=== PATIENT | female | born 1980 | race Caucasian/White ===

== ENCOUNTER 2017-10-26 17:28 | Emergency (ER) | payer OTHER ==
[2017-10-26] MEDS ORDERED: LIDOCAINE 4%/TETRACAINE 0.5%/EPI 0.18% 5 ML TOPICAL SOLN TOP ONE (18:30)
--- NOTE | 2017-10-26 18:30 | ER Document Report ---
ED General - General Mode of Arrival: Ambulatory Information source: Patient TRAVEL OUTSIDE OF THE [place] IN LAST 30 DAYS: No <DAVE KENDALL - Last Filed: 10/26/17 22:47> <KISHOR JOHN - Last Filed: 10/26/17 22:59> - General Chief Complaint: Laceration Stated Complaint: FINGER LACERATION Notes: 37 y.o female presents to the ED with laceration to her LT middle finger. Pt reports that she cut it while trying to cut a watermelon and was concerned because she could see white after cutting her finger and thought it might have been her tendon. Pt is right handed. Pt reports that her tetanus vaccination is not up to date. Pt is from [place] and here visiting her in the . (DAVE KENDALL) - Related Data Allergies/Adverse Reactions: No Known Allergies Allergy (Verified 10/26/17 17:29) Past Medical History - General Information source: Patient - Social History Smoking Status: Former Smoker Chew tobacco use (# tins/day): - pt reports vaping Frequency of alcohol use: Rare Drug Abuse: None Family History: Reviewed & Not Pertinent Patient has suicidal ideation: No Patient has homicidal ideation: No Renal/ Medical History: Denies: Hx Peritoneal Dialysis <DAVE KENDALL - Last Filed: 10/26/17 22:47> Review of Systems - Review of Systems Constitutional: No symptoms reported EENT: No symptoms reported Cardiovascular: No symptoms reported Respiratory: No symptoms reported Gastrointestinal: No symptoms reported Genitourinary: No symptoms reported Female Genitourinary: No symptoms reported Musculoskeletal: No symptoms reported Skin: Other - Laceration Hematologic/Lymphatic: No symptoms reported Neurological/Psychological: No symptoms reported -: Yes All other systems reviewed and negative <DAVE KENDALL - Last Filed: 10/26/17 22:47> Physical Exam <DAVE KENDALL - Last Filed: 10/26/17 22:47> <KISHOR JOHN - Last Filed: 10/26/17 22:59> - Vital signs Vitals: Temp Pulse Resp BP Pulse Ox 98.6 F 87 15 135/80 H 96 10/26/17 17:43 10/26/17 17:43 10/26/17 17:43 10/26/17 17:43 10/26/17 17:43 - Notes Notes: Physical Exam: General: Alert, appears well. HEENT: Normocephalic. Atraumatic. PERRL. Extraocular movements intact. Oropharynx clear. Neck: Supple. Non-tender. Respiratory: No respiratory distress. Clear and equal breath sounds bilaterally. Cardiovascular: Regular rate and rhythm. Abdominal: Normal Inspection. Non-tender. No distension. Normal Bowel Sounds. Back: Non-tender. No deformity or step off. Extremities: Moves all four extremities. Upper extremities: Normal ROM. 0.3cm linear laceration proximally on the left middle finger. Normal strength. Lower extremities: Normal inspection. No edema. Normal ROM. Neurological: Normal cognition. AAOx3. Normal speech. Psychological: Normal affect. Normal Mood. Skin: Warm. Dry. 0.3cm linear laceration proximally on the left middle finger. ( DAVE KENDALL) Course <DAVE KENDALL - Last Filed: 10/26/17 22:47> - Diagnostic Test Radiology reviewed: Image reviewed <KISHOR JOHN - Last Filed: 10/26/17 22:59> - Re-evaluation Re-evalutation: 10/26/17 19:15 Laceration shows no signs of tendon injury patient has full flexion of finger that had laceration without weakness and laceration is not midline. It is more lateral aspect of the finger. Dermabond applied no complications. Infection return precautions provided (KISHOR JOHN) - Vital Signs Vital signs: Temp Pulse Resp BP Pulse Ox 98.9 F 80 15 133/82 H 97 10/26/17 19:18 10/26/17 19:18 10/26/17 17:43 10/26/17 19:18 10/26/17 19:18 Procedures - Laceration/Wound Repair Left Proximal Finger 3rd digit Time completed: 19:13 Wound length (cm): 0.3 Wound's Depth, Shape: Superficial, Linear Wound explored: Clean, No foreign body removed Wound Repaired With: Dermabond <DAVE KENDALL - Last Filed: 10/26/17 22:47> Discharge <DAVE KENDALL - Last Filed: 10/26/17 22:47> <KISHOR JOHN - Last Filed: 10/26/17 22:59> - Discharge Condition: Good Disposition: HOME, SELF-CARE Instructions: Laceration Care ([facility]), Tetanus Immunization Given ([facility]) Additional Instructions: If you shows any signs of infection including redness or pus from site please return for reevaluation Scribe Attestation: 10/26/17 22:59 I personally performed the services described documentation, reviewed and edited the documentation which was dictated to describe my presence, and it accurately records my words and actions. (KISHOR JOHN) Scribe Documentation - Scribe Written by Mario Albertoe:: Iliana Ayala 10/26/17 [id number] acting as scribe for :: Vickey <DAVE KENDALL - Last Filed: 10/26/17 22:47>
[2017-10-26] MEDS ORDERED: DIPH/PERTUSS(ACELL)/TETANUS VAC/PF 0.5 ML SYR (>=10YO) IM ONE (18:32)
--- NOTE | 2017-10-26 18:56 | RADIOLOGY REPORT (SQ) ---
EXAM DESCRIPTION: FINGER LEFT COMPLETED DATE/TIME: 10/26/2017 6:29 pm REASON FOR STUDY: cut with knife L 3rd finger COMPARISON: None. NUMBER OF VIEWS: Three views. TECHNIQUE: AP, lateral, and oblique images acquired of the left third finger. LIMITATIONS: None. FINDINGS: MINERALIZATION: Normal. BONES: No acute fracture or dislocation. No worrisome bone lesions. SOFT TISSUES: Moderate soft tissue swelling. No radiopaque foreign body. OTHER: No other significant finding. IMPRESSION: No fracture or radiopaque foreign body. COMMENT: SITE OF TRAUMA/COMPLAINT MARKED/STAMP COMPLETED: Yes TECHNICAL DOCUMENTATION: JOB ID: [id number] [place]-72 2010 [employer]- All Rights Reserved Reading location - IP/workstation name: [email or web address]
[2017-10-26 19:24] VITALS: BP 133/82
== END 2017-10-26 19:28 | disposition home or self-care (01) ==
LOC: ER 17:28
PROC: 0HQGXZZ Repair Left Hand Skin, External Approach (ICD-10-PCS; principal; 2017-10-26)
DX: S61.213A Laceration without foreign body of left middle finger without damage to nail, initial encounter (principal); W45.8XXA Other foreign body or object entering through skin, initial encounter; Z87.891 Personal history of nicotine dependence
CPT/HCPCS: 99283; 90471; 73140; 90715; 12001; J3490

== ENCOUNTER → 2018-07-16 | Outpatient (CLI) | payer OTHER ==
--- NOTE | 2018-07-16 14:00 | RADIOLOGY REPORT (SQ) ---
EXAM DESCRIPTION: U/S NON-OB PELVIS TV W/O DOP COMPLETED DATE/TIME: 07/16/2018 11:49 am REASON FOR STUDY: N92.1 EXCESSIVE AND FREQUENT MENSTRUATION WITH IRREGULAR CYCLE N92.1 EXCESSIVE AN D FREQUENT MENSTRUATION WITH IRREGULAR CYC LMP 06/05/2018 COMPARISON: None. TECHNIQUE: Dynamic and static grayscale images acquired of the pelvis via transvaginal approach and recorded on PACS. Additional selected color Doppler and spectral images recorded. LIMITATIONS: None. FINDINGS: UTERUS: Contour normal. No mass. ENDOMETRIAL STRIPE: No focal or generalized thickening. No masses. CERVIX: 3.3 cm. No nabothian cysts. RIGHT OVARY AND DOPPLER: Normal size. No worrisome masses. Normal arterial vascular flow without evid ence for torsion. LEFT OVARY AND DOPPLER: Normal size. No worrisome masses. Normal arterial vascular flow without evide nce for torsion. FREE FLUID: None noted. OTHER: No other significant finding. MEASUREMENTS: UTERUS: 7.9 x 4.6 x 4.5 cm. ENDOMETRIAL STRIPE: 4 mm. RIGHT OVARY: 3.2 x 2.7 x 2.3 cm. LEFT OVARY: 2.2 x 1.5 x 2.2 cm. IMPRESSION: NORMAL TRANSVAGINAL PELVIC ULTRASOUND. TECHNICAL DOCUMENTATION: JOB ID: [id number] [employer]- All Rights Reserved Rev Reading location - IP/workstation name: [email or web address]
== END ==
LOC: RAD 11:07
PROVIDERS: ATTEND Physician Assistant
DX: N92.1 Excessive and frequent menstruation with irregular cycle (principal)
CPT/HCPCS: 76830

== ENCOUNTER → 2018-10-15 | Outpatient (CLI) | payer OTHER ==
--- NOTE | 2018-10-15 12:41 | RADIOLOGY REPORT (SQ) ---
EXAM DESCRIPTION: CHEST 2 VIEWS COMPLETED DATE/TIME: 10/15/2018 11:45 am REASON FOR STUDY: R06.02 SHORTNESS OF BREATH COMPARISON: None. EXAM PARAMETERS: NUMBER OF VIEWS: two views TECHNIQUE: Digital Frontal and Lateral radiographic views of the chest acquired. RADIATION DOSE: NA LIMITATIONS: none FINDINGS: LUNGS AND PLEURA: No consolidation, masses or pneumothorax. No pleural effusion. MEDIASTINUM AND HILAR STRUCTURES: No masses or contour abnormalities. HEART AND VASCULAR STRUCTURES: Heart normal size. No evidence for failure. BONES: No acute findings. HARDWARE: None in the chest. OTHER: No other significant finding. IMPRESSION: NO ACUTE RADIOGRAPHIC FINDING IN THE CHEST. TECHNICAL DOCUMENTATION: JOB ID: [id number] [place]-72 2010 [employer]- All Rights Reserved Reading location - IP/workstation name: [email or web address]
== END ==
LOC: RAD 11:27
PROVIDERS: ATTEND Physician Assistant
DX: R06.02 Shortness of breath (principal)
CPT/HCPCS: 71046

== ENCOUNTER → 2018-11-29 | Outpatient (CLI) | payer OTHER ==
--- NOTE | 2018-11-29 10:58 | RADIOLOGY REPORT (SQ) ---
EXAM DESCRIPTION: CHEST 2 VIEWS COMPLETED DATE/TIME: 11/29/2018 10:46 am REASON FOR STUDY: COUGH (R05) COMPARISON: 10/15/2018 EXAM PARAMETERS: NUMBER OF VIEWS: two views TECHNIQUE: Digital Frontal and Lateral radiographic views of the chest acquired. RADIATION DOSE: NA LIMITATIONS: none FINDINGS: LUNGS AND PLEURA: No opacities, masses or pneumothorax. No pleural effusion. MEDIASTINUM AND HILAR STRUCTURES: No masses or contour abnormalities. HEART AND VASCULAR STRUCTURES: Heart normal size. No evidence for failure. BONES: No acute findings. HARDWARE: None in the chest. OTHER: No other significant finding. IMPRESSION: NO ACUTE RADIOGRAPHIC FINDING IN THE CHEST. TECHNICAL DOCUMENTATION: JOB ID: [id number] [employer]- All Rights Reserved Reading location - IP/workstation name: [email or web address]
== END ==
LOC: RAD 10:26
PROVIDERS: ATTEND Physician Assistant
DX: R05 Cough (principal)
CPT/HCPCS: 71046

== ENCOUNTER → 2018-12-05 | Outpatient (CLI) | payer OTHER ==
--- NOTE | 2018-12-05 15:02 | RADIOLOGY REPORT (SQ) ---
EXAM DESCRIPTION: CT CHEST WITH COMPLETED DATE/TIME: 12/05/2018 2:39 pm REASON FOR STUDY: (R05)COUGH R05 COUGH COMPARISON: None. TECHNIQUE: CT scan of the chest performed using helical scanning technique with dynamic intravenous contrast injection. Images reviewed with lung, soft tissue and bone windows. Reconstructed coronal and sagittal MPR and MIP images reviewed. All images stored on PACS. All CT scanners at this facility use dose modulation, iterative reconstruction, and/or weight based d osing when appropriate to reduce radiation dose to as low as reasonably achievable (ALARA). [facility]: Dose Right [facility]: CareDose [facility]: Dose Right [facility]: Teradose 4D [facility]: Cleeng CONTRAST TYPE AND DOSE: contrast/concentration: Isovue 350.00 mg/ml; Total Contrast Delivered: 80.0 ml; Total Saline Delivered: 55.0 ml RENAL FUNCTION: None required. The patient is less than 50 years old. RADIATION DOSE: CT Rad equipment meets quality standard of care and radiation dose reduction techniq ues were employed. CTDIvol: 19.4 mGy. DLP: 862 mGy-cm. . LIMITATIONS: None. FINDINGS: LUNGS AND PLEURA: Minimal opacification in the lingula. HILAR AND MEDIASTINAL STRUCTURES: No identified masses or abnormal nodes. HEART AND VASCULAR STRUCTURES: No aneurysm or dissection. No central pulmonary emboli. No pericardi al effusion. HARDWARE: None in the chest. UPPER ABDOMEN: Hepatic steatosis. THYROID AND OTHER SOFT TISSUES: No masses. No adenopathy. BONES: No significant finding. OTHER: No other significant finding. IMPRESSION: Cannot exclude limited lingular pneumonia. Hepatic steatosis. TECHNICAL DOCUMENTATION: JOB ID: [id number] Quality ID # [id number]: Final reports with documentation of one or more dose reduction techniques (e.g., Au tomated exposure control, adjustment of the mA and/or kV according to patient size, use of iterative reconstruction technique) 2010 [employer]- All Rights Reserved Reading location - IP/workstation name: [email or web address]
== END ==
LOC: RAD 13:47
PROVIDERS: ATTEND Physician Assistant
DX: R05 Cough (principal)
CPT/HCPCS: 71260

== ENCOUNTER 2018-12-06 13:32 | Inpatient (IN) | payer OTHER ==
[2018-12-06] MEDS ORDERED: DIPHENHYDRAMINE HCL 50 MG/ML VIAL ONE (13:47)
[2018-12-06] MEDS ORDERED: FAMOTIDINE INJ/PF 20 MG/2 ML SDV IV ONE ×2 (13:47→15:24)
[2018-12-06] MEDS ORDERED: METHYLPREDNISOLONE INJ 125 MG/2 ML SDV ONE (13:47)
[2018-12-06] MEDS ORDERED: EPINEPHRINE INJ/PF 1 MG/1 ML AMPULE ONE ×3 (13:47→13:55)
[2018-12-06] MEDS ORDERED: ONDANSETRON HCL INJ/PF 4 MG/2 ML SDV ONE (13:58)
[2018-12-06] MEDS ORDERED: RACEPINEPHRINE HCL 2.25% NEB 0.5 ML AMPUL NEB ONE ×2 (14:09→15:26)
[2018-12-06] MEDS ORDERED: LORAZEPAM INJ 2 MG/1 ML VIAL ONE (14:25)
[2018-12-06] MEDS ORDERED: IPRATROPIUM/ALBUTEROL 0.5-2.5 MG/3 ML AMPUL NEB ONE (14:25)
--- NOTE | 2018-12-06 15:01 | ER Document Report ---
ED General - General Chief Complaint: Allergic Reaction Stated Complaint: POSSIBLE ALLERGIC REACTION Time Seen by Provider: 12/06/18 13:46 Mode of Arrival: Ambulatory Information source: Patient Notes: 38-year-old female presents after an allergic reaction that occurred after taking her first dose of Levaquin at 1 PM this afternoon. Patient states that shortly afterwards she experienced a rash, difficulty breathing, lip swelling, nausea and vomiting. Patient reports that she has been treated for pneumonia for several weeks now. She states that she has had doxycycline, prednisone,Ceftin without improvement. She was seen yesterday and a CAT scan was ordered which showed a possible pneumonia of the lingula. Upon arrival patient is in respiratory distress, has diffuse erythema, is diaphoretic and vomiting. TRAVEL OUTSIDE OF THE [place] IN LAST 30 DAYS: No - HPI Onset: Just prior to arrival Onset/Duration: Sudden - Related Data Allergies/Adverse Reactions: acetaminophen [From Tylenol] Allergy (Mild, Verified 12/06/18 22:37) levofloxacin [From Levaquin] Adverse Reaction (Severe, Verified 12/06/18 22:37) ciprofloxacin Adverse Reaction (Verified 12/06/18 22:37) Past Medical History - General Information source: Patient - Social History Smoking Status: Former Smoker Frequency of alcohol use: None Drug Abuse: None Lives with: Family Family History: Reviewed & Not Pertinent Patient has suicidal ideation: No Patient has homicidal ideation: No Pulmonary Medical History: Reports: Hx Pneumonia Renal/ Medical History: Denies: Hx Peritoneal Dialysis Past Surgical History: Reports: Hx Section, Hx Tonsillectomy Review of Systems - Review of Systems Notes: REVIEW OF SYSTEMS: CONSTITUTIONAL : Denies fever, chills, or sweats. + recent illness. Denies weight loss, recent hospitalizations. EENT: Denies visual changes, eye pain. + sore throat, denies oral lesions. + difficulty swallowing. CARDIOVASCULAR: Denies chest pain. Denies palpitations. Denies lower extremity edema. RESPIRATORY: + cough. + shortness of breath, wheezing. GASTROINTESTINAL: Denies abdominal pain or distention. + nausea, vomiting, denies diarrhea. Denies blood in vomitus, stools, or per rectum. Denies black, tarry stools. Denies constipation. GENITOURINARY: Denies difficulty urinating, painful urination, frequency, blood in urine, or vaginal discharge. MUSCULOSKELETAL: Denies back or neck pain or stiffness. Denies joint pain or swelling. SKIN: Denies rash, lesions or sores. HEMATOLOGIC : Denies easy bruising or bleeding. LYMPHATIC: Denies swollen glands. NEUROLOGICAL: Denies confusion or altered mental status. Denies loss of consciousness. Denies dizziness or lightheadedness. Denies headache. Denies weakness or paralysis. Denies problems difficulty with ambulation, slurred speech. Denies sensory loss, numbness, or tingling. Denies seizures. PSYCHIATRIC: Denies anxiety or stress. Denies depression, suicidal ideation, or homicidal ideation. Denies visual or auditory hallucinations. Physical Exam - Vital signs Vitals: Resp Pulse Ox 18 89 L 12/06/18 13:42 12/06/18 13:42 - Notes Notes: PHYSICAL EXAMINATION: GENERAL: In extremis HEAD: Atraumatic, normocephalic. EYES: Pupils equal round and reactive to light, extraocular movements intact, conjunctiva are normal. ENT: Nares patent, oropharynx clear without exudates. Moist mucous membranes. NECK: Normal range of motion, supple without lymphadenopathy. Positive stridor. Uvula midline. Airway patent LUNGS:. Hypoxic, tachypneic, increased work of breathing, diffuse wheezing in all lung jones HEART: Regular rate and rhythm without murmurs ABDOMEN: Soft, nontender, nondistended abdomen. No guarding, no rebound. No masses appreciated. Actively vomiting Female : deferred Musculoskeletal: Normal range of motion, no pitting or edema. No cyanosis. NEUROLOGICAL: Cranial nerves grossly intact. Normal speech, normal gait. Normal sensory, motor exams PSYCH: Anxious SKIN: Diffuse urticaria Course - Re-evaluation Re-evalutation: Laboratory 12/06/18 12/06/18 13:45 13:45 WBC 12.0 H RBC 5.26 Hgb 14.4 Hct 42.2 MCV 80 MCH 27.5 MCHC 34.2 RDW 14.1 H Plt Count 288 Seg Neutrophils % 60.8 Lymphocytes % 29.8 Monocytes % 6.6 Eosinophils % 2.3 Basophils % 0.5 Absolute Neutrophils 7.3 Absolute Lymphocytes 3.6 Absolute Monocytes 0.8 Absolute Eosinophils 0.3 Absolute Basophils 0.1 Sodium 139.4 Potassium 4.1 Chloride 104 Carbon Dioxide 22 Anion Gap 13 BUN 10 Creatinine 0.72 Est GFR ( Amer) > 60 Est GFR (Non-Af Amer) > 60 Glucose 138 H Calcium 10.4 H Total Bilirubin 0.5 Direct Bilirubin 0.3 Neonat Total Bilirubin Not Reportable Neonat Direct Bilirubin Not Reportable Neonat Indirect Bili Not Reportable AST 118 H ALT 128 Alkaline Phosphatase 68 Total Protein 7.4 Albumin 4.7 Temp Pulse Resp BP Pulse Ox 27 H 167/110 H 93 12/06/18 14:06 12/06/18 14:06 12/06/18 14:06 12/06/18 17:12 38-year-old female presented in respiratory distress with anaphylaxis secondary to Levaquin taking at 1 PM. Patient is hypoxic, tachycardic, hypotensive and has diffuse erythema, wheezing, increased work of breathing, stridor. During my evaluation patient began vomiting. She did receive IM epi, Benadryl, Solu- Medrol, Pepcid without improvement of her symptoms. Epi drip was initiated and Zofran was given. Patient continued to have increased work of breathing and received racemic epinephrine. Upon arrival patient is hypoxic, tachycardic. Patient was transferred to the trauma bay for closer evaluation. Epi drip was initiated at 1 mcg/min. After 2 hours we attempted to discontinue the drip and the patient stated that she began to feel itchy. Previous medical records and nursing notes reviewed including CAT scan that was performed yesterday which showed possible pneumonia of the lingula. I did speak to Dr. Connolly regarding admission for observation and he is agreeable to admit the patient to the IMCU. We will again to try and titrate the drip down. Dr. Connolly and I did discuss antibiotic administration and at this time have decided to hold off. Patient is agreeable to admission. 12/06/18 17:30 Dr. Connolly at bedside and requesting repeat chest x-ray and ABG. Epi drip has been discontinued and patient will be continued to be monitored. - Vital Signs Vital signs: Temp Pulse Resp BP Pulse Ox 98.6 F 104 H 20 149/76 H 95 12/06/18 23:52 12/07/18 00:29 12/07/18 00:29 12/06/18 23:52 12/07/18 00:29 - Laboratory Result Diagrams: 12/06/18 13:45 12/06/18 13:45 Laboratory results interpreted by me: 12/06/18 12/06/18 13:45 13:45 WBC 12.0 H RDW 14.1 H Glucose 138 H Calcium 10.4 H AST 118 H - Diagnostic Test Radiology reviewed: Image reviewed, Reports reviewed - EKG Interpretation by Me EKG shows normal: Sinus rhythm Rate: Tachycardia [place]/QRS: Right axis deviation When compared to previous EKG there are: Changes noted Discharge - Discharge Clinical Impression: Respiratory distress, Hypoxia Anaphylaxis Qualifiers: Encounter type: initial encounter Qualified Code(s): T78.2XXA - Anaphylactic shock, unspecified, initial encounter Medication reaction Qualifiers: Encounter type: initial encounter Qualified Code(s): T50.905A - Adverse effect of unspecified drugs, medicaments and biological substances, initial encounter Condition: Fair Disposition: ADMITTED INPATIENT Admitting Provider: Connolly Unit Admitted: [facility]
[2018-12-06 15:11] LABS: ABSOLUTE BASOPHILS # (AUTO) 0.1 10^3/uL (0.0-0.2); ABSOLUTE EOSINOPHILS # (AUTO) 0.3 10^3/uL (0.0-0.6); ABSOLUTE LYMPHOCYTES (AUTO) 3.6 10^3/uL (0.5-4.7); ABSOLUTE MONOCYTES (AUTO) 0.8 10^3/uL (0.1-1.4); ABSOLUTE NEUT (AUTO) 7.3 10^3/uL (1.7-8.2); BASOPHILS % (AUTO) 0.5 % (0-2); EOSINOPHILS % (AUTO) 2.3 % (0-6); HEMATOCRIT 42.2 % (36.0-47.0); HEMOGLOBIN 14.4 g/dL (12.0-15.5); LYMPHOCYTES % (AUTO) 29.8 % (13-45); MEAN CORPUSCULAR HEMOGLOBIN 27.5 pg (27.0-33.4); MEAN CORPUSCULAR HGB CONC 34.2 g/dL (32.0-36.0); MEAN CORPUSCULAR VOLUME 80 fl (80-97); MONOCYTES % (AUTO) 6.6 % (3-13); PLATELET COUNT 288 10^3/uL (150-450); RED BLOOD COUNT 5.26 10^6/uL (3.72-5.28); RED CELL DISTRIBUTION WIDTH 14.1 % (11.5-14.0); SEGMENTED NEUTROPHILS % (AUTO) 60.8 % (42-78); TOTAL CELLS COUNTED % (AUTO) 100 %
[2018-12-06 15:20] LABS: ALBUMIN 4.7 g/dL (3.5-5.0); ALKALINE PHOSPHATASE 68 U/L (38-126); ANION GAP 13 (5-19); ASPARTATE AMINO TRANSFERASE 118 U/L (14-36); BILIRUBIN,DIRECT 0.3 mg/dL (0.0-0.4); BILIRUBIN,TOTAL 0.5 mg/dL (0.2-1.3); BLOOD UREA NITROGEN 10 mg/dL (7-20); CALCIUM 10.4 mg/dL (8.4-10.2); CARBON DIOXIDE 22 mmol/L (22-30); CHLORIDE 104 mmol/L (98-107); GLUCOSE 138 mg/dL (75-110); POTASSIUM 4.1 mmol/L (3.6-5.0); TOTAL PROTEIN 7.4 g/dL (6.3-8.2)
[2018-12-06] MEDS ORDERED: METHYLPREDNISOLONE INJ 125 MG/2 ML SDV IV ONE (15:24)
[2018-12-06] MEDS ORDERED: DIPHENHYDRAMINE HCL 50 MG/ML VIAL IV ONE (15:24)
[2018-12-06] MEDS ORDERED: EPINEPHRINE INJ/PF 1 MG/1 ML AMPULE SUBCUT ONE ×2 (15:25→17:24)
[2018-12-06] MEDS ORDERED: ALBUTEROL SULFATE 0.083% NEB 2.5 MG/3 ML AMPUL NEB ONE (15:25)
[2018-12-06] MEDS ORDERED: LORAZEPAM INJ 2 MG/1 ML VIAL IV ONE (15:26)
[2018-12-06] MEDS ORDERED: LIDOCAINE 2% VISCOUS SOLN 20 ML UDCUP PO ONE (16:56)
[2018-12-06] MEDS ORDERED: GUAIFENESIN/CODEINE PHOS 100-10 MG/ 5 ML UDC PO ONE (17:12)
[2018-12-06] MEDS ORDERED: RINGERS SOLUTION,LACTATED 1,000 ML IV ONE (17:28)
[2018-12-06] MEDS ORDERED: NORMAL SALINE 1000 ML 1,000 ML IV PRN (17:31)
[2018-12-06] MEDS ORDERED: LEVALBUTEROL HCL NEB 0.63 MG/3 ML AMPUL NEB PRN (17:31)
[2018-12-06] MEDS: LEVALBUTEROL HCL NEB 0.63 MG/3 ML AMPUL NEB SCH (17:50)
--- NOTE | 2018-12-06 17:59 | PDOC H&P ---
History of Present Illness Admission Date/PCP: 12/06/18 17:29 JANKI SHEETS Patient complains of: Allergic reactions History of Present Illness: ALEXEI FARAH is a 38 year old female This is a 38-year-old female with ongoing cough for the last several months recently admitting in [facility] in May and treated with the pneumonia came to the office last month with ongoing cough and patient was giving the Augmentin and then doxycycline course Patient was also prescribing the allergy medicines Zyrtec and singular and also giving the omeprazole for the ongoing cough but still not getting better. Patient have a PFT was done was all stable also prescribe inhaled steroid but underlying possible asthma with the patient have a history of the one time asthma when he was a childhood but patient was still not improving Patient has a CT of the chest was done on a Monday with so some questionable linula pneumonia and because of the several antibiotic course and ongoing issues patient was prescribed the Levaquin p.o. Patient's took 1 dose p.o. Levaquin today and patient started developing the rash on the chest and a scratchy throat and the shortness of the breath and patients came to the emergency department by patient was more short of breath little hypotensive's and looks like anaphylactic reactions patient received IV Solu-Medrol Benadryl Pepcid and epi and patient was put on a epi drips Patient's when I saw in the emergency department feel 100% better alert awake oriented x4 patient's not any distressed anymore Patient still require a little oxygen but other than that patient is back to the baseline her rest is pretty much all resolving Patient's denied any chest pain No fever no chills At this point because of this reactions patient decided to admit for further observations Patient's wants to go home but discussed with the patient's that cannot go home is to observe for at least 24 hours Patient is deployed Patient with ongoing cough already referred to pulmonary as outpatients we will consult the Dr. Oshea's will further evaluate Patient is currently afebrile CT of the chest suggests questionable pneumonia wi ll wait for the Dr. Oshea's to consult before we give any antibiotic Put in IMCU to close observations continues to IV fluid Benadryl Past Medical History Pulmonary Medical History: Reports: Asthma, Bronchitis, Pneumonia Past Surgical History Past Surgical History: Reports: Section, Tonsillectomy Social History Smoking Status: Former Smoker Family History Family History: Reviewed & Not Pertinent Parental Family History Reviewed: Yes Children Family History Reviewed: Yes Sibling(s) Family History Reviewed.: Yes Medication/Allergy Home Medications: Albuterol Sulfate [Proair Hfa Inhalation Aerosol 8.5 gm Mdi] 1 puff IH Q4 PRN 12/06/18 Ibuprofen [Motrin 800 mg Tablet] 800 mg PO Q8HP PRN 12/06/18 Montelukast Sodium [Singulair 10 mg Tablet] 10 mg PO QHS 12/06/18 Omeprazole 20 mg PO DAILY 12/06/18 Allergies/Adverse Reactions: ciprofloxacin Adverse Reaction (Verified 12/06/18 17:28) levofloxacin [From Levaquin] Adverse Reaction (Verified 12/06/18 17:28) Review of Systems Constitutional: ABSENT: chills, fever(s), headache(s), weight gain, weight loss Eyes: ABSENT: visual disturbances Ears: ABSENT: hearing changes Cardiovascular: ABSENT: chest pain, dyspnea on exertion, edema, orthropnea, palpitations Respiratory: ABSENT: cough, hemoptysis Gastrointestinal: ABSENT: abdominal pain, constipation, diarrhea, hematemesis, hematochezia, nausea, vomiting Genitourinary: ABSENT: dysuria, hematuria Musculoskeletal: ABSENT: joint swelling Integumentary: ABSENT: rash, wounds Neurological: ABSENT: abnormal gait, abnormal speech, confusion, dizziness, focal weakness, syncope Psychiatric: ABSENT: anxiety, depression, homidical ideation, suicidal ideation Endocrine: ABSENT: cold intolerance, heat intolerance, menstrual abnormalities, polydipsia, polyuria Hematologic/Lymphatic: ABSENT: easy bleeding, easy bruising, lymphadenopathy Physical Exam Vital Signs: Temp Pulse Resp BP Pulse Ox 21 H 161/84 H 92 12/06/18 17:21 12/06/18 17:21 12/06/18 17:21 General appearance: PRESENT: no acute distress, well-developed, well-nourished Head exam: PRESENT: atraumatic, normocephalic Eye exam: PRESENT: conjunctiva pink, EOMI, PERRLA. ABSENT: scleral icterus Ear exam: PRESENT: normal external ear exam Mouth exam: PRESENT: moist, tongue midline Additional comments: Clear throat and the midline uvula Neck exam: PRESENT: full ROM. ABSENT: carotid bruit, JVD, lymphadenopathy, thyromegaly Respiratory exam: PRESENT: clear to auscultation caryl Cardiovascular exam: PRESENT: RRR. ABSENT: diastolic murmur, rubs, systolic murmur Pulses: PRESENT: normal dorsalis pedis pul, +2 pedal pulses bilateral Vascular exam: PRESENT: normal capillary refill GI/Abdominal exam: PRESENT: normal bowel sounds, soft. ABSENT: distended, guarding, mass, organolmegaly, rebound, tenderness Rectal exam: PRESENT: deferred Musculoskeletal exam: PRESENT: ambulatory Neurological exam: PRESENT: alert, awake, oriented to person, oriented to place, oriented to time, oriented to situation, CN II-XII grossly intact. ABSENT: motor sensory deficit Psychiatric exam: PRESENT: appropriate affect, normal mood. ABSENT: homicidal ideation, suicidal ideation Skin exam: PRESENT: dry, intact, warm. ABSENT: cyanosis, rash Additional comments: Mild eczematous rash on the chest area and mild in the face but according the patient is much better Results Laboratory Results: 12/06/18 13:45 12/06/18 13:45 12/06/18 12/06/18 13:45 13:45 WBC 12.0 H RBC 5.26 Hgb 14.4 Hct 42.2 MCV 80 MCH 27.5 MCHC 34.2 RDW 14.1 H Plt Count 288 Seg Neutrophils % 60.8 Lymphocytes % 29.8 Monocytes % 6.6 Eosinophils % 2.3 Basophils % 0.5 Absolute Neutrophils 7.3 Absolute Lymphocytes 3.6 Absolute Monocytes 0.8 Absolute Eosinophils 0.3 Absolute Basophils 0.1 Sodium 139.4 Potassium 4.1 Chloride 104 Carbon Dioxide 22 Anion Gap 13 BUN 10 Creatinine 0.72 Est GFR ( Amer) > 60 Est GFR (Non-Af Amer) > 60 Glucose 138 H Calcium 10.4 H Total Bilirubin 0.5 AST 118 H Alkaline Phosphatase 68 Total Protein 7.4 Albumin 4.7 Assessment & Plan - Diagnosis (1) Anaphylaxis Qualifiers: Encounter type: initial encounter Qualified Code(s): T78.2XXA - Anaphylactic shock, unspecified, initial encounter Is this a current diagnosis for this admission?: Yes Plan: In the emergency department patient received a epi Solu-Medrol Benadryl and Pepcid and currently all resolving Patient is not in any distress anymore Patient's database is all clear and patent Patient is talking without any issues Continues to monitor in IMCU Continues to IV Solu-Medrol and Benadryl and Pepcid IV Continues to singular and Zyrtec (2) Hypoxia Is this a current diagnosis for this admission?: Yes Plan: Continues to 2 L nasal cannula currently all improving We will get the chest x-ray Consult the Dr. Oshea (3) Pneumonia Is this a current diagnosis for this admission?: Yes Plan: Patient had a several antibiotic course currently afebrile we will consult the Dr. Oshea's to further evaluate with ongoing this questionable pneumonia and a CT of the chest (4) Chronic cough Is this a current diagnosis for this admission?: Yes Plan: Patient with several antibiotic allergy medicines and PPI Patient with inhaled steroids to Consult the pulmonary for further evaluations (5) Impaired fasting glucose Is this a current diagnosis for this admission?: Yes Plan: Patient's recent A1c is 6.4 I think patients get a benefit with the Metformin and discharge Will put on a sliding scale (6) Medication reaction Qualifiers: Encounter type: initial encounter Qualified Code(s): T50.905A - Adverse effect of unspecified drugs, medicaments and biological substances, initial encounter Is this a current diagnosis for this admission?: Yes Plan: Discussed with the patient about the Levaquin allergies and do not take that category medications in the future's - Time Time Spent: 50 to 70 Minutes Medications reviewed and adjusted accordingly: Yes Anticipated discharge: Home Within: Other - Inpatient Certification Based on my medical assessment, after consideration of the patient's comorbidities, presenting symptoms, or acuity I expect that the services needed warrant INPATIENT care.: Yes I certify that my determination is in accordance with my understanding of Medicare's requirements for reasonable and necessary INPATIENT services [42 CFR 412.3e].: Yes Medical Necessity: Significant Comorbidiites Make Outpatient Treatment Too Risky, Need Close Monitoring Due to Risk of Patient Decompensation, Need For IV Fluids, Need for Nebulizer Therapy and Monitoring of Response, Need for IV Antibiotics Post Hospital Care: D/C Application Packaging Consultant Documentation - Plan Summary Plan Summary: Admit the patient in IMCU Continues to the steroid and Benadryl and Pepcid Continues to monitor Consult the pulmonary
[2018-12-06] MEDS ORDERED: DEXTROSE 50%-WATER 25 GM/50 ML DISP.SYRIN IV PRN ×2 (18:00)
[2018-12-06] MEDS ORDERED: GLUCAGON,HUMAN RECOMB 1 MG INJ IM PRN (18:00)
[2018-12-06] MEDS ORDERED: DEXTROSE 40% GEL 15 GM TUBE PO PRN ×2 (18:00)
--- NOTE | 2018-12-06 18:55 | RADIOLOGY REPORT (SQ) ---
EXAM DESCRIPTION: CHEST SINGLE VIEW COMPLETED DATE/TIME: 12/06/2018 5:43 pm REASON FOR STUDY: cough COMPARISON: 11/29/2018 EXAM PARAMETERS: NUMBER OF VIEWS: One view. TECHNIQUE: Single frontal radiographic view of the chest acquired. RADIATION DOSE: NA LIMITATIONS: None. FINDINGS: LUNGS AND PLEURA: No opacities, masses or pneumothorax. No pleural effusion. MEDIASTINUM AND HILAR STRUCTURES: No masses. Contour normal. HEART AND VASCULAR STRUCTURES: Heart normal in size. Normal vasculature. BONES: No acute findings. HARDWARE: None in the chest. OTHER: No other significant finding. IMPRESSION: NO ACUTE RADIOGRAPHIC FINDING IN THE CHEST. TECHNICAL DOCUMENTATION: JOB ID: [id number] [employer]- All Rights Reserved Reading location - IP/workstation name: [email or web address]
[2018-12-06 20:16] LABS: ARTERIAL BLOOD BASE EXCESS -3.9 mmol/L; ARTERIAL BLOOD H2CO3 0.92 mmol/L (1.05-1.35); ARTERIAL BLOOD HCO3 19.4 mmol/L (20-24); ARTERIAL BLOOD PCO2 30.6 mmHg (35-45); ARTERIAL BLOOD PH 7.42 (7.35-7.45); ARTERIAL BLOOD PO2 88.9 mmHg (80-100); ARTERIAL BLOOD TOTAL CO2 20.3 mmol/L (21-25)
[2018-12-06 20:17] LABS: ARTERIAL BLOOD FIO2 ROOM AIR
[2018-12-06] MEDS: DIPHENHYDRAMINE HCL 25 MG CAPSULE PO SCH (20:58)
[2018-12-06] MEDS ORDERED: MONTELUKAST SODIUM 10 MG TABLET PO SCH (22:00)
[2018-12-06] MEDS: METHYLPREDNISOLONE INJ 125 MG/2 ML SDV IV SCH (22:21)
[2018-12-06] MEDS: FAMOTIDINE INJ/PF 20 MG/2 ML SDV IV SCH (22:22)
[2018-12-06] MEDS: INSULIN LISPRO 100 UNIT/ML 3 ML VIAL SUBCUT SCH (22:22)
[2018-12-06 22:27] LABS: APPEARANCE,URINE CLEAR; BILIRUBIN,URINE NEGATIVE (NEGATIVE); COLOR,URINE YELLOW; GLUCOSE, URINE >=500 mg/dL (NEGATIVE); KETONES,URINE 20 mg/dL (NEGATIVE); LEUKOCYTE ESTERASE,URINE NEGATIVE (NEGATIVE); NITRITE,URINE NEGATIVE (NEGATIVE); PROTEIN,URINE NEGATIVE (NEGATIVE); URINE SPECIFIC GRAVITY 1.022; UROBILINOGEN,URINE NEGATIVE mg/dL (<2.0)
[2018-12-07] MEDS: DIPHENHYDRAMINE HCL 25 MG CAPSULE PO SCH ×3 (00:09→08:23)
[2018-12-07] MEDS: LEVALBUTEROL HCL NEB 0.63 MG/3 ML AMPUL NEB SCH ×3 (00:13→04:38)
[2018-12-07 05:13] LABS: ABSOLUTE BASOPHILS # (AUTO) 0.1 10^3/uL (0.0-0.2); ABSOLUTE LYMPHOCYTES (AUTO) 1.1 10^3/uL (0.5-4.7); ABSOLUTE MONOCYTES (AUTO) 0.1 10^3/uL (0.1-1.4); ABSOLUTE NEUT (AUTO) 12.9 10^3/uL (1.7-8.2); BASOPHILS % (AUTO) 0.4 % (0-2); EOSINOPHILS % (AUTO) 0.1 % (0-6); HEMATOCRIT 38.1 % (36.0-47.0); HEMOGLOBIN 12.7 g/dL (12.0-15.5); LYMPHOCYTES % (AUTO) 7.7 % (13-45); MEAN CORPUSCULAR HEMOGLOBIN 26.9 pg (27.0-33.4); MEAN CORPUSCULAR HGB CONC 33.4 g/dL (32.0-36.0); MEAN CORPUSCULAR VOLUME 81 fl (80-97); MONOCYTES % (AUTO) 0.8 % (3-13); PLATELET COUNT 238 10^3/uL (150-450); RED BLOOD COUNT 4.72 10^6/uL (3.72-5.28); RED CELL DISTRIBUTION WIDTH 14.4 % (11.5-14.0); TOTAL CELLS COUNTED % (AUTO) 100 %; WHITE BLOOD COUNT 14.2 10^3/uL (4.0-10.5)
[2018-12-07 05:35] LABS: ALBUMIN 4.2 g/dL (3.5-5.0); ALKALINE PHOSPHATASE 62 U/L (38-126); ANION GAP 9 (5-19); ASPARTATE AMINO TRANSFERASE 58 U/L (14-36); BILIRUBIN,DIRECT 0.3 mg/dL (0.0-0.4); BILIRUBIN,TOTAL 0.5 mg/dL (0.2-1.3); BLOOD UREA NITROGEN 11 mg/dL (7-20); CALCIUM 10.1 mg/dL (8.4-10.2); CARBON DIOXIDE 23 mmol/L (22-30); CHLORIDE 106 mmol/L (98-107); GLUCOSE 235 mg/dL (75-110); POTASSIUM 4.6 mmol/L (3.6-5.0); TOTAL PROTEIN 6.9 g/dL (6.3-8.2)
[2018-12-07] MEDS: METHYLPREDNISOLONE INJ 125 MG/2 ML SDV IV SCH (06:19)
[2018-12-07] MEDS: INSULIN LISPRO 100 UNIT/ML 3 ML VIAL SUBCUT SCH ×2 (08:23→11:52)
[2018-12-07] MEDS: FAMOTIDINE INJ/PF 20 MG/2 ML SDV IV SCH (09:18)
[2018-12-07] MEDS ORDERED: PREDNISONE 20 MG TABLET PO SCH (10:00)
[2018-12-07] MEDS ORDERED: CETIRIZINE 10 MG TABLET PO SCH (10:00)
[2018-12-07] MEDS ORDERED: ENOXAPARIN SODIUM INJ 40 MG/0.4 ML DISP.SYRIN SUBCUT SCH (10:00)
--- NOTE | 2018-12-07 11:56 | PDOC PROGRESS REPORT ---
Subjective Progress Note for:: 12/07/18 Subjective:: Patient is feeling much better Denied any chest pain to than any shortness of the breath Denied any difficulty in swallowing No itching Rash is all resolved Patient does not require any oxygen's and O2 sat is 95% Patient snore a lot at night patient said she had a some sleep study done couple of years at home they told no sleep apnea Patient's cough is also getting better No fever no chills discuss with the Dr. Oshea's is going to look at the CT scan patient's most likely underlying asthma unlikely to be pneumonia's pictures but the patient's white count is slightly elevated and the CT scan findings with the need to doxycycline on discharge Reason For Visit: ANAPHYLAXIS,MEDICATION REACTION,RESPIRATORY Physical Exam Vital Signs: Temp Pulse Resp BP Pulse Ox 98.0 F 119 H 20 147/84 H 98 12/07/18 03:52 12/07/18 07:00 12/07/18 04:38 12/07/18 03:52 12/07/18 04:38 Intake & Output 12/06/18 12/07/18 12/08/18 06:59 06:59 06:59 Intake Total 1359 Output Total 1425 Balance -66 Weight 130.2 kg General appearance: PRESENT: no acute distress, well-developed, well-nourished Head exam: PRESENT: atraumatic, normocephalic Eye exam: PRESENT: conjunctiva pink, EOMI, PERRLA. ABSENT: scleral icterus Ear exam: PRESENT: normal external ear exam Mouth exam: PRESENT: moist, tongue midline Neck exam: PRESENT: full ROM. ABSENT: carotid bruit, JVD, lymphadenopathy, thyromegaly Respiratory exam: PRESENT: clear to auscultation caryl Cardiovascular exam: PRESENT: RRR. ABSENT: diastolic murmur, rubs, systolic murmur Pulses: PRESENT: normal dorsalis pedis pul, +2 pedal pulses bilateral Vascular exam: PRESENT: normal capillary refill GI/Abdominal exam: PRESENT: normal bowel sounds, soft. ABSENT: distended, guarding, mass, organolmegaly, rebound, tenderness Rectal exam: PRESENT: deferred Extremities exam: ABSENT: pedal edema Musculoskeletal exam: PRESENT: ambulatory Neurological exam: PRESENT: alert, awake, oriented to person, oriented to place, oriented to time, oriented to situation, CN II-XII grossly intact. ABSENT: motor sensory deficit Psychiatric exam: PRESENT: appropriate affect, normal mood. ABSENT: homicidal i deation, suicidal ideation Skin exam: PRESENT: dry, intact, warm. ABSENT: cyanosis, rash Additional comments: Rashes all resolved Results Laboratory Results: 12/07/18 05:01 12/07/18 05:01 12/06/18 12/06/18 12/06/18 13:45 13:45 20:03 WBC 12.0 H RBC 5.26 Hgb 14.4 Hct 42.2 MCV 80 MCH 27.5 MCHC 34.2 RDW 14.1 H Plt Count 288 Seg Neutrophils % 60.8 Lymphocytes % 29.8 Monocytes % 6.6 Eosinophils % 2.3 Basophils % 0.5 Absolute Neutrophils 7.3 Absolute Lymphocytes 3.6 Absolute Monocytes 0.8 Absolute Eosinophils 0.3 Absolute Basophils 0.1 Carbonic Acid 0.92 L HCO3/H2CO3 Ratio 21:1 ABG pH 7.42 ABG pCO2 30.6 L ABG pO2 88.9 ABG HCO3 19.4 L ABG O2 Saturation 97.0 ABG Base Excess -3.9 FiO2 ROOM AIR Sodium 139.4 Potassium 4.1 Chloride 104 Carbon Dioxide 22 Anion Gap 13 BUN 10 Creatinine 0.72 Est GFR ( Amer) > 60 Est GFR (Non-Af Amer) > 60 Glucose 138 H Calcium 10.4 H Magnesium Total Bilirubin 0.5 AST 118 H Alkaline Phosphatase 68 Total Protein 7.4 Albumin 4.7 Urine Color Urine Appearance Urine pH Ur Specific [place] Urine Protein Urine Glucose (UA) Urine Ketones Urine Blood Urine Nitrite Ur Leukocyte Esterase Urine WBC (Auto) Urine RBC (Auto) 12/06/18 12/07/18 12/07/18 22:16 05:01 05:01 WBC 14.2 H RBC 4.72 Hgb 12.7 Hct 38.1 MCV 81 MCH 26.9 L MCHC 33.4 RDW 14.4 H Plt Count 238 Seg Neutrophils % 91.0 H Lymphocytes % 7.7 L Monocytes % 0.8 L Eosinophils % 0.1 Basophils % 0.4 Absolute Neutrophils 12.9 H Absolute Lymphocytes 1.1 Absolute Monocytes 0.1 Absolute Eosinophils 0.0 Absolute Basophils 0.1 Carbonic Acid HCO3/H2CO3 Ratio ABG pH ABG pCO2 ABG pO2 ABG HCO3 ABG O2 Saturation ABG Base Excess FiO2 Sodium 138.3 Potassium 4.6 Chloride 106 Carbon Dioxide 23 Anion Gap 9 BUN 11 Creatinine 0.67 Est GFR ( Amer) > 60 Est GFR (Non-Af Amer) > 60 Glucose 235 H Calcium 10.1 Magnesium 1.7 Total Bilirubin 0.5 AST 58 H Alkaline Phosphatase 62 Total Protein 6.9 Albumin 4.2 Urine Color YELLOW Urine Appearance CLEAR Urine pH 6.0 Ur Specific [place] 1.022 Urine Protein NEGATIVE Urine Glucose (UA) >=500 H Urine Ketones 20 H Urine Blood NEGATIVE Urine Nitrite NEGATIVE Ur Leukocyte Esterase NEGATIVE Urine WBC (Auto) 1 Urine RBC (Auto) 0 Impressions: Chest X-Ray 12/06/18 17:24 IMPRESSION: NO ACUTE RADIOGRAPHIC FINDING IN THE CHEST. Assessment & Plan - Diagnosis (1) Anaphylaxis Qualifiers: Encounter type: initial encounter Qualified Code(s): T78.2XXA - Anaphylactic shock, unspecified, initial encounter Is this a current diagnosis for this admission?: Yes Plan: Coming from the [facility] currently all resolved (2) Hypoxia Is this a current diagnosis for this admission?: Yes Plan: Currently all resolved patients probably need outpatients for the sleep study (3) Pneumonia Is this a current diagnosis for this admission?: Yes Plan: Will wait for the pulmonary evaluations may be possible discharge home with the doxycycline well patient does not have any issue with the doxycycline (4) Chronic cough Is this a current diagnosis for this admission?: Yes Plan: Most likely underlying asthma will consider inhaler as per pulmonary evaluations (5) Impaired fasting glucose Is this a current diagnosis for this admission?: Yes Plan: She had 2 days back was 6.4 I believe patients need a Metformin XR current blood sugar is elevated due to the steroid (6) Medication reaction Qualifiers: Encounter type: initial encounter Qualified Code(s): T50.905A - Adverse effect of unspecified drugs, medicaments and biological substances, initial encounter Is this a current diagnosis for this admission?: Yes Plan: Will continues Zyrtec singular PRN Benadryl and Pepcid and will give a 4 days co urse of the prednisone Currently all symptoms resolved (7) Fatty liver Is this a current diagnosis for this admission?: Yes Plan: We will look at the office record believe patient have a hepatitis panel done in the ultrasound done - Time Time Spent with patient: 25-34 minutes Medications reviewed and adjusted accordingly: Yes Anticipated discharge: Home Within: within 24 hours - Inpatient Certification Based on my medical assessment, after consideration of the patient's comorbidities, presenting symptoms, or acuity I expect that the services needed warrant INPATIENT care.: Yes I certify that my determination is in accordance with my understanding of [employer] 's requirements for reasonable and necessary INPATIENT services [42 CFR 412.3e].: Yes Medical Necessity: Significant Comorbidiites Make Outpatient Treatment Too Risky Post Hospital Care: D/C Social Group Worker Documentation - Plan Summary Plan Summary: Discussed with the nurses to check the pulse ox on a walking will wait for the Dr. Oshea for evaluations possible discharge today or tomorrow depends on the pulmonary evaluations
[2018-12-07 13:23] VITALS: BP 147/96
--- NOTE | 2018-12-08 10:10 | EKG REPORT ---
SEVERITY:- BORDERLINE ECG - SINUS TACHYCARDIA BORDERLINE RIGHT AXIS DEVIATION BORDERLINE PROLONGED QT INTERVAL : Confirmed by: Alexandria Salguero 08-Dec-2018 10:10:15
--- NOTE | 2018-12-10 16:35 | PDOC DISCHARGE SUMMARY ---
General - Admit/Disc Date/PCP Admission Date/Primary Care Provider: 12/06/18 17:29 JANKI SHEETS Discharge Date: 11/30/18 - Discharge Diagnosis (1) Anaphylaxis Is this a current diagnosis for this admission?: Yes Summary: Currently all resolved (2) Hypoxia Is this a current diagnosis for this admission?: Yes Summary: Currently all resolved patient still need outpatient sleep study seen by the pulmonary Dr. Oshea's wants to put it to auto BiPAP today but patients wants to follow outpatient with no time today because she has to go to home and she preferred to go home today and discussed with Dr. Oshea and is okay to follow outpatient (3) Pneumonia Is this a current diagnosis for this admission?: Yes Summary: Continues with doxycycline which patients took it in the past currently afebrile (4) Chronic cough Is this a current diagnosis for this admission?: Yes Summary: could be coming from the chronic sinus issues patient's outpatients need to ENT evaluations also seen by the pulmonary (5) Impaired fasting glucose Is this a current diagnosis for this admission?: Yes Summary: Follow in office in 2 to 3 days check of blood sugar at home daily consider start the Metformin (6) Medication reaction Is this a current diagnosis for this admission?: Yes Summary: Currently all resolved (7) Fatty liver Is this a current diagnosis for this admission?: Yes - Additional Information Discharge Diet: Diabetic Discharge Activity: Activity As Tolerated Prescriptions: Prednisone [Deltasone 20 mg Tablet] 20 mg PO BID #14 tablet Home Medications: Albuterol Sulfate [Proair HFA Inhalation Aerosol 8.5 gm MDI] 1 puff IH Q4HP PRN 12/06/18 Montelukast Sodium [Singulair 10 mg Tablet] 10 mg PO QHS 12/06/18 Vit 40/Iron/Folic/Dha [ Multi-Dha Softgel] 1 each PO DAILY 12/06/18 Cetirizine HCl [Zyrtec 10 mg Tablet] 10 mg PO BID #60 12/07/18 Prednisone [Deltasone 20 mg Tablet] 20 mg PO BID #14 tablet 12/07/18 History of Present Illness History of Present Illness: ALEXEI FARAH is a 38 year old female This is a 38-year-old female with ongoing cough for the last several months recently admitting in [facility] in May and treated with the pneumonia came to the office last month with ongoing cough and patient was giving the Augmentin and then doxycycline course Patient was also prescribing the allergy medicines Zyrtec and singular and also giving the omeprazole for the ongoing cough but still not getting better. Patient have a PFT was done was all stable also prescribe inhaled steroid but un derlying possible asthma with the patient have a history of the one time asthma when he was a childhood but patient was still not improving Patient has a CT of the chest was done on a Monday with so some questionable linula pneumonia and because of the several antibiotic course and ongoing issues patient was prescribed the Levaquin p.o. Patient's took 1 dose p.o. Levaquin today and patient started developing the rash on the chest and a scratchy throat and the shortness of the breath and patients came to the emergency department by patient was more short of breath little hypotensive's and looks like anaphylactic reactions patient received IV Solu-Medrol Benadryl Pepcid and epi and patient was put on a epi drips Patient's when I saw in the emergency department feel 100% better alert awake or iented x4 patient's not any distressed anymore Patient still require a little oxygen but other than that patient is back to the baseline her rest is pretty much all resolving Patient's denied any chest pain No fever no chills At this point because of this reactions patient decided to admit for further observations Patient's wants to go home but discussed with the patient's that cannot go home is to observe for at least 24 hours Patient is deployed Patient with ongoing cough already referred to pulmonary as outpatients we will consult the Dr. Oshea's will further evaluate Patient is currently afebrile CT of the chest suggests questionable pneumonia will wait for the Dr. Oshea'stef to consult before we give any antibiotic Put in IMCU to close observations continues to IV fluid Benadryl Hospital Course Hospital Course: This is a 38-year-old female presented the emergency departments with the allergic reactions from the Levaquin after taking the 1 dose patient was giving the IV Solu-Medrol epinephrine and also Pepcid And benadryl Patient's was admitting in the hospital for further observations and evaluations Since all the rash and anaphylactic reaction is resolved Patient's back to the baseline's patient is walking the hallway p.o. intake is all good Patient seen by Dr. Moreno pulmonary and patients at this point concerned abo ut the sleep apnea because of the snoring Dr. Moreno wants to put the patient on the auto BiPAP at night but patients feeling better and wants to go home's because she has to take care of her son and patients want to do his outpatient sleep things Discussed with the Dr. Moreno pulmonary and suggest to okay to follow outpatient At this point patient is a nephrologic reaction since all resolved patient was put on a Pepcid and Zyrtec and continue singular and a tapering dose of the steroid at home And also put on doxycycline for the questionable pneumonia in the sinuses Patient is to follow in office in 3 days Discussed with the patient any shortness of the breath any chest pain is to go to the ER Patient is otherwise feel better no other concerns no issues Discussed with the patient about side effect of the Levaquin do not take any more another category of the same medications Patient's primary need outpatient allergy evaluationsOngoing chronic cough and sinuses Physical Exam Vital Signs: Temp Pulse Resp BP Pulse Ox 98.0 F 127 H 20 147/96 H 95 12/07/18 13:23 12/07/18 13:23 12/07/18 13:23 12/07/18 13:23 12/07/18 13:23 General appearance: PRESENT: no acute distress, well-developed, well-nourished Head exam: PRESENT: atraumatic, normocephalic Eye exam: PRESENT: conjunctiva pink, EOMI, PERRLA. ABSENT: scleral icterus Ear exam: PRESENT: normal external ear exam Mouth exam: PRESENT: moist, tongue midline Neck exam: PRESENT: full ROM. ABSENT: carotid bruit, JVD, lymphadenopathy, thyromegaly Respiratory exam: PRESENT: clear to auscultation caryl Cardiovascular exam: PRESENT: RRR. ABSENT: diastolic murmur, rubs, systolic murmur Pulses: PRESENT: normal dorsalis pedis pul, +2 pedal pulses bilateral Vascular exam: PRESENT: normal capillary refill GI/Abdominal exam: PRESENT: normal bowel sounds, soft. ABSENT: distended, guarding, mass, organolmegaly, rebound, tenderness Rectal exam: PRESENT: deferred Musculoskeletal exam: PRESENT: ambulatory Neurological exam: PRESENT: alert, awake, oriented to person, oriented to place, oriented to time, oriented to situation, CN II-XII grossly intact. ABSENT: motor sensory deficit Psychiatric exam: PRESENT: appropriate affect, normal mood. ABSENT: homicidal ideation, suicidal ideation Skin exam: PRESENT: dry, intact, warm. ABSENT: cyanosis, rash Results Laboratory Results: 12/07/18 05:01 12/07/18 05:01 Impressions: Chest X-Ray 12/06/18 17:24 IMPRESSION: NO ACUTE RADIOGRAPHIC FINDING IN THE CHEST. Qualifiers - * PATIENT BEING DISCHARGED WITH ANY OF THE FOLLOWING DIAGNOSIS: No Acute Heart Failure - Is this a Heart Failure Patient?: No Plan Time Spent: Greater than 30 Minutes - Follow in office in 3 days Check of blood work on office CBC and Chem-[address] Oshea's pulmonary for sleep study and chronic cough Outpatient [facility] or ENT
== END 2018-12-07 13:59 | disposition home or self-care (01) | DRG 915 ==
LOC: ER 13:32 → EH 17:29 → 3N 20:18
PROVIDERS: ADMIT Family Medicine; ATTEND Family Medicine
DX: T88.6XXA Anaphylactic reaction due to adverse effect of correct drug or medicament properly administered, initial encounter (principal); J18.9 Pneumonia, unspecified organism; K76.0 Fatty (change of) liver, not elsewhere classified; T36.8X5A Adverse effect of other systemic antibiotics, initial encounter; R05 Cough; R09.02 Hypoxemia; R73.01 Impaired fasting glucose; R06.83 Snoring; Z87.891 Personal history of nicotine dependence; Z88.1 Allergy status to other antibiotic agents; Z87.01 Personal history of pneumonia (recurrent)
CPT/HCPCS: 36415; 71045; 80053; 81001; 81025; 82803; 82962; 83735; 85025; 87040; 93005; 93010; 94640; 96372; 96374; 96375; 99285; J0171; J1200; J1815; J2060; J2930; J3490; J7030; J7120; J7512; J7614; S0028

== ENCOUNTER → 2019-03-26 | Outpatient (CLI) | payer OTHER ==
--- NOTE | 2019-03-26 15:26 | RADIOLOGY REPORT (SQ) ---
EXAM DESCRIPTION: HUMERUS RIGHT COMPLETED DATE/TIME: 03/26/2019 3:09 pm REASON FOR STUDY: M79.601 PAIN IN RIGHT ARM COMPARISON: None. NUMBER OF VIEWS: Two views. TECHNIQUE: Two radiographic images were acquired of the right humerus to include elbow and shoulder in at least one projection. LIMITATIONS: None. FINDINGS: MINERALIZATION: Normal. BONES: No acute fracture or dislocation. No worrisome bone lesions. No significant osteophytes. SOFT TISSUES: No obvious swelling or foreign body. OTHER: No other significant finding. IMPRESSION: NEGATIVE STUDY OF THE RIGHT HUMERUS. NO EXPLANATION FOR PAIN. TECHNICAL DOCUMENTATION: JOB ID: [id number] [employer]- All Rights Reserved Reading location - IP/workstation name: [email or web address]
--- NOTE | 2019-03-26 15:26 | RADIOLOGY REPORT (SQ) ---
EXAM DESCRIPTION: SHOULDER RIGHT 2 OR MORE VIEWS COMPLETED DATE/TIME: 03/26/2019 3:09 pm REASON FOR STUDY: M79.601 COMPARISON: None. NUMBER OF VIEWS: Three views. TECHNIQUE: Internal rotation, external rotation, and Y view images acquired of the right shoulder. LIMITATIONS: None. FINDINGS: MINERALIZATION: Normal. BONES: No acute fracture. No worrisome bone lesions. No significant osteophytes. GLENOHUMERAL JOINT: No significant findings. ACROMIOCLAVICULAR JOINT: No large osteophytes. SOFT TISSUES: No calcifications. VISUALIZED RIBS, SPINE, AND LUNG: No other significant finding. OTHER: No other significant finding. IMPRESSION: NEGATIVE STUDY OF THE RIGHT SHOULDER. NO EXPLANATION FOR PAIN. TECHNICAL DOCUMENTATION: JOB ID: [id number] [employer]- All Rights Reserved Reading location - IP/workstation name: [email or web address]
== END ==
LOC: RAD 14:52
PROVIDERS: ATTEND Physician Assistant
DX: M79.601 Pain in right arm (principal); M25.562 Pain in left knee

== ENCOUNTER → 2019-05-10 | Outpatient (CLI) | payer OTHER | LOC: LAB 10:48 | PROVIDERS: ATTEND Physician Assistant | DX: N92.1 Excessive and frequent menstruation with irregular cycle (principal) | CPT/HCPCS: 36415; 84702 ==